=== PATIENT | male | born 1990 | race Caucasian/White ===

== ENCOUNTER 2022-05-29 06:05 | Day surgery (SDC) | payer OTHER ==
[~2022-05-29] VITALS: Ht 182.9 cm; Wt 122.7 kg
--- NOTE | 2022-05-29 08:28 | NUR ---
PT ALERT, ORIENTED AND SUPPORTED BY [facility]SI AND DAUGHTER. PT IS INFORMED, ALL QUESTIONS ASKED ANSWERED. PT REQUESTED PRAYER, FAMILY WILL REMAIN FOR DC. WILL FOLLOW NEEDED
--- NOTE | 2022-05-29 11:06 | NUR ---
05/29/22 1106 Rosetta Branham 1105 PATIENT ARRIVES TO PACU RESTING WITH EYES CLOSED, OPENS EYES WITH VERBAL STIMULI. DENIES PAIN OR NAUSEA. BACK TO SLEEP WHEN NOT STIMULATED. RESP EVEN AND UNLABORED, ROOM AIR SATS >93%.
[2022-05-29] MEDS ORDERED: DICLOFENAC SODI75 MG PO (11:08)
[2022-05-29] MEDS ORDERED: HYDROCODON-ACE1 EA11 PO (11:08)
--- NOTE | 2022-05-29 12:20 | NUR ---
1200 PATIENT BACK FROM PACU. REPORT RECIEVED FROM BATSHEVA WATKINS. PATIENT IS ALERT AND ORIENTED. PATIENT COMPLAINS OF 5/10 PAIN AT SURGICAL SITE. DENIES NEEDING ANYTHING FOR PAIN RIGHT NOW. DENIES ANYTHING FOR NAUSEA. PATIENT ABLE TO AMBULATE TO THE RESTROOM. VOIDED CLEAR AND YELLOW URINE. PATIENT BACK TO ROOM. CRYO CUFF APPLIED. IVF INFUSING. PATIENT DRINKING WATER AND EATING CRACKERS. SPOUSE AND DAUGHTER AT BEDSIDE. CALL LIGHT WITHIN REACH NO FUTHER NEEDS OR QUESTIONS.
--- NOTE | 2022-05-29 13:09 | NUR ---
PT RESTING IN BED AWAKE WITH FAMILY AT BEDSIDE. PT STATES PAIN 5/10 AND WOULD LIKE PAIN RX PRIOR TO DC WITH MOVEMENT AND DRESSING. PT DENIES ANY NAUSEA AND HAS TOLERATED PO WITH NO PROBLEM. SPOUSE ASKS MANY QUESTIONS THAT ARE ANSWERED. CALL LIGHT WITHIN REACH.
--- NOTE | 2022-05-29 13:50 | NUR ---
1340: DR. PORTER CALLED WITH PT REQUEST TO HAVE SHOULDER IMMOBILIZER TO KEEP ARM OFF OF SIDE DUE TO HEAT RASH. DR. PORTER DOES NOT WANT PT ARM ABDUCTED FROM BODY AND VERBALLY ORDERS TALC POWER WITH ABD AND FOR PT TO KEEP UNDER ARM CLEAN AND DRY TO HELP WITH RASH. PHARMACY NOTIFIED AND ORDERS INPUT INTO [facility].
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
== END 2022-05-29 14:10 | disposition home or self-care (01) ==
LOC: DS 06:05
PROVIDERS: ATTEND Specialist
PROC: 0PS904Z Reposition Right Clavicle with Internal Fixation Device, Open Approach (ICD-10-PCS; principal; 2022-05-29 09:15)
DX: S42.031A Displaced fracture of lateral end of right clavicle, initial encounter for closed fracture (principal); G89.18 Other acute postprocedural pain; Z20.822 Contact with and (suspected) exposure to COVID-19; V49.88XA Car occupant (driver) (passenger) injured in other specified transport accidents, initial encounter; Y93.F9 Activity, other caregiving; Y99.8 Other external cause status
CPT/HCPCS: 73000; 87502; A9270; C9803; J0690; J1100; J1170; J1885; J2001; J2250; J2405; J2704; J2795; J3010; J7121; U0003

== ENCOUNTER 2022-08-28 09:45 | Day surgery (SDC) | payer OTHER ==
[~2022-08-28] VITALS: Ht 182.9 cm; Wt 122.7 kg
[~2022-08-28 09:45] MED LIST: DICLOFENAC SODI75 MG PO; HYDROCODON-ACE1 EA11 PO
--- NOTE | 2022-08-28 10:03 | NUR ---
both nares swabbed for covid-19 without complication
[2022-08-28] MEDS ORDERED: HYDROCODON-ACE1 EA11 PO (15:34)
--- NOTE | 2022-08-28 15:38 | NUR ---
08/28/22 1538 Rosetta Branham 1531 PATIENT ARRIVES TO PACU RESTING WITH EYES CLOSED. OPENS EYES WITH VERBAL STIMULI. RESP EVEN AND UNLABORED, MASK AT 6 LITERS. PATIENT DENIES PAIN OR NAUSEA. 1536 PATIENT RESTING WITH EYES CLOSED. RESP EVEN AND UNLABORED, MASK OFF. ROOM AIR SATS 100%. DENIES PAIN OR NAUSEA. DRESSING TO RIGHT SHOULDER REINFORCED WITH GAUZE AND OP SITE PER DONNA AND DR PORTER.
--- NOTE | 2022-08-28 15:55 | NUR ---
PT IS BACK TO DS FROM PACU. HE IS BACK TO HIS BASELINE, SLIGHTLY DROWSY, BUT EASILY AROUSABLE. HE WOULD LIKE WATER AND CRACKERS. HE DOES REPORT SLIGHT NAUSEA, BUT WAS GIVEN ZOFRAN IN PACU. CALL LIGHT WITHIN REACH. NO ADDITIONAL NEEDS OR CONCERNS.
--- NOTE | 2022-08-28 17:04 | NUR ---
BHUPENDRA 165: PT IS UP TO THE BATHROOM WITH STANDBY ASSIST. HE IS ABLE TO WALK TO AND FROM THE BATHROOM. HE HAS MET ALL DC CRITERIA AT THIS TIME. HE IS EDUCATED ON HOW TO BEST DRESS HIMSELF.
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
== END 2022-08-28 17:20 | disposition home or self-care (01) ==
LOC: DS 09:45
PROVIDERS: ATTEND Specialist
PROC: 0PP904Z Removal of Internal Fixation Device from Right Clavicle, Open Approach (ICD-10-PCS; principal; 2022-08-28 15:00)
DX: Z47.2 Encounter for removal of internal fixation device (principal); S42.031D Displaced fracture of lateral end of right clavicle, subsequent encounter for fracture with routine healing; Z87.891 Personal history of nicotine dependence; Z20.822 Contact with and (suspected) exposure to COVID-19
CPT/HCPCS: 87502; A9270; C9803; J0690; J1100; J1885; J2250; J2405; J2704; J2795; J3010; J7121; U0003